=== PATIENT | female | born 1980 | race Caucasian/White ===

== ENCOUNTER 2017-06-11 21:00 | Outpatient (CLI) | payer OTHER ==
--- NOTE | 2017-06-12 10:31 | Ultrasound Report ---
PELVIC ULTRASOUND: 06/11/2017 CLINICAL INDICATION: Menorrhagia. COMPARISON: 01/29/2013. TECHNIQUE: Transabdominal pelvic ultrasound performed for global evaluation. Transvaginal pelvic ultrasound performed for detailed evaluation. Real-time scanning performed and static images obtained. FINDINGS: The uterus is anteverted, measuring 8.3 x 5.1 x 3.6 cm. An IUD is noted in the endometrial canal. No focal myometrial lesion is seen. The ovaries are unremarkable, with right measuring 3.8 x 2.9 x 2.7 cm, and the left measuring 3.0 x 2.9 x 1.3 cm. No free fluid is present. IMPRESSION: IUD IN THE ENDOMETRIAL CANAL. NORMAL PELVIC ULTRASOUND. TD: 06/12/2017 10:30
== END 2017-06-11 21:01 | disposition home or self-care (01) ==
LOC: DI 21:00
PROVIDERS: ATTEND Physician Assistant Medical
DX: N92.1 Excessive and frequent menstruation with irregular cycle (principal); Z97.5 Presence of (intrauterine) contraceptive device
CPT/HCPCS: 76830; 76856